=== PATIENT | female | born 1980 | race Caucasian/White ===

== ENCOUNTER 2017-03-31 17:10 | Emergency (ER) | payer SELFPAY ==
[~2017-03-31] VITALS: Ht 152.4 cm; Wt 99.8 kg
[~2017-03-31 17:10] MED LIST: ALEVE220 MG PO; BROMFED DM 480480 ML PO; CIPROFLOXACIN500 MG PO; DIUREX WATER PI1 TAB PO; LEVOTHYROXINE0.05 MG NG; PRAVASTATIN 40M40 MG PO; TYLENOL SINUS C PO
--- OUTSIDE RECORDS SUMMARY | 2017-03-31 17:18 | External Medical Summary Rpt | CCD ---
Author Author , SANDRA Organization SANDRA Address Unknown Phone [email or web address] Care Team Providers Care Oracle Fusion Consultant Name Role Phone ARNULFO PERKINS MD, Unavailable Unavailable ARNULFO PERKINS MD Purpose Continuity of Care Document - 03-10-2013 through 2016 Problems Code Diagnosis DOS Provider Status 244.9 244.9 03-10-2013 [place] HYPOTHYROID [facility] IS NOS [facility] 250.00 250.00 DIAB 03-10-2013 [place] CHARLEEN WO [facility], TYPE Hospital II OR UNSPEC TYPE, NOT UNCNTRLD 272.4 272.4 03-10-2013 [place] HYPERLIPIDE [facility] named [facility]/NOS [facility] 305.1 305.1 03-10-2013 [place] TOBACCO USE [facility] 535.50 535.50 UNSP 03-10-2013 [place] GASTRITIS [facility] & [facility] 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 HEMORG V58.69 V58.69 OTH 03-10-2013 [place] MED,LT,CURR [facility] ENT USE Hospital Allergies, Adverse Reactions, Alerts Type Allergy to substance Adverse Reaction to Substance Substance Reaction Severity NO KNOWN ALLERGIES Unknown Unknown Medications Na ND Rx Da Fi Fi Am Da Di Ph RX Ph St me C No te ll ll ou ys ag ar # ys at rm s nt no ma ic us Or Da si cy ia de te s n re d Sa 63 10 0 No li 80 -3 ne 70 1- Lo 10 20 ng Fl 07 13 er us 5 h Ac 10 ti ML ve Sy ri ng e GI 12 10 0 No 32 -3 CO 22 1- Lo CK 22 20 ng TA 22 13 er [place] 2 Ac 60 ti ML ve UD C PA 51 10 0 No NT 07 -3 OP 90 1- Lo RA 05 20 ng ZO 12 13 er LE 0 Ac SO ti D ve DR 40 MG TA B Vital Signs 03-10-2013 22:42 Name Value Interpretat Reference Comment ion Range BP 73 mm[Hg] Diastolic BP Systolic 126 mm[Hg] Heart 60 /min Rate/Pulse O2% 100 % Respiratory 20 /min Rate 03-10-2013 21:44 Name Value Interpretat Reference Comment ion Range BP 88 mm[Hg] Diastolic BP Systolic 145 mm[Hg] Heart 82 /min Rate/Pulse O2% 98 % Respiratory 20 /min Rate Results Labs Lab Lab Date Result Refere Interp Status Commen Order Detail nces retati t Range on LIPASE (03-10-2013 21:40) LIPASE 245 U/L 73-393 complet 013 ed 21:40 COMPREHENSIVE METABOLIC PANEL (03-10-2013 21:13) Glucose 119 74-106 complet 013 mg/dL ed Bld-mCn 21:13 c BUN 13 7-18 complet Bld-mCn 013 mg/dL ed c 21:13 Creat 1.1 0.6-1.0 complet SerPl-m 013 mg/dL ed Cnc 21:13 Creat 118 50-200 complet Cl 013 ML/MIN ed predict 21:13 ed SerPl C-G-vRa te GFR/BSA 58 59- complet .pred 013 ML/MIN ed SerPl 21:13 Schwart z-vRate Sodium 141 136-145 complet SerPl-s 013 mmoL/L ed Cnc 21:13 Potassi 4.1 3.5-5.1 complet um 013 mmoL/L ed SerPl-s 21:13 Cnc Chlorid 105 98-107 complet e 013 mmoL/L ed SerPl-s 21:13 Cnc CO2 29 21.0-32 complet SerPl-s 013 mmoL/L .0 ed Cnc 21:13 Calcium 9.1 8.5-10. complet 013 mg/dL 1 ed SerPl-m 21:13 Cnc Prot 7.3 6.4-8.2 complet SerPl-m 013 gm/dL ed Cnc 21:13 Albumin 4.2 3.4-5.0 complet 013 gm/dL ed SerPl-m 21:13 Cnc Globuli 10-31-2 3.1 1.3-3.2 complet n 013 gm/dL ed Ser-mCn 21:13 c Albumin 03-10-2 1.4 UNK 1.1-1.8 complet /Glob 013 ed SerPl-m 21:13 Rto Bilirub 03-10-2 0.2 0.2-1.0 complet 013 mg/dL ed SerPl-m 21:13 Cnc AST 03-10-2 23 U/L 15-37 complet SerPl-c 013 ed Cnc 21:13 ALT 03-10-2 41 U/L 30-65 complet SerPl-c 013 ed Cnc 21:13 ALP 03-10-2 79 U/L 50-136 complet SerPl-c 013 ed Cnc 21:13 Amylase SerPl-cCnc (03-10-2013 21:13) Amylase 03-10-2 47 U/L 25-115 complet 013 ed SerPl-c 21:13 Cnc CBC with AUTO DIFF (03-10-2013 21:13) WBC # 03-10-2 9.7 4.8-10. complet Bld 013 K/MM3 8 ed Auto 21:13 RBC # 03-10-2 3.84 4.2-5.4 complet Bld 013 M/mm3 ed Auto 21:13 Hgb 03-10-2 11.8 12.2-16 complet Bld-mCn 013 g/dL .2 ed c 21:13 Hct Fr 03-10- 35.6 % 37.0-47 complet Bld 013 .0 ed 21:13 MCV RBC 03-10-2 92.8 fl 82.2-97 complet 013 .8 ed 21:13 MCH RBC 03-10-2 30.8 pg 27-31.2 complet Qn 013 ed Auto 21:13 MEAN 03-10-2 33.2 31.8-35 complet CORPUSC 013 g/dl .4 ed ULAR 21:13 HGB CONC RDW RBC 03-10-2 15.9 % 11.5-17 complet Auto 013 .5 ed 21:13 Platele 03-10-2 345 142-424 complet t Bld 013 K/mm3 ed Ql 21:13 Manual MEAN 03-10-2 8.0 fl 7.4-10. complet PLATELE 013 4 ed T 21:13 VOLUME Granulo 10-31-2 57.5 % 37.0-80 complet cytes 013 .0 ed Fr Bld 21:13 Auto LYMPH % 10-31-2 30.7 % 10-50.0 complet 013 ed 21:13 Monocyt 10-31-2 5.6 % 1.7-9.3 complet es Fr 013 ed Bld 21:13 Auto Eosinop 10-31-2 5.2 % 0.1-12. complet hil Fr 013 0 ed Bld 21:13 Auto Basophi 10-31-2 1.0 % 0.1-2.0 complet ls Fr 013 ed Bld 21:13 Auto Granulo 10-31-2 5.6 1.8-7.8 complet cytes # 013 K/mm3 ed Bld 21:13 Auto Lymphoc 10-31-2 3.0 0.7-4.5 complet ytes Fr 013 K/mm3 ed Bld 21:13 Auto Monocyt 10-31-2 0.5 0.1-1.0 complet es # 013 K/mm3 ed Bld 21:13 Auto Eosinop 10-31-2 0.5 0.0-0.4 complet hil # 013 K/mm3 ed Bld 21:13 Auto Basophi 10-31-2 0.1 0-0.2 complet ls # 013 K/MM3 ed Bld 21:13 Auto B-HCG Ur Ql (03-10-2013 20:55) B-HCG 10-31-2 NEGATIV NEG complet Ur Ql 013 E ed 20:55 URINALYSIS/COMPLETE (03-10-2013 20:55) URINE 10-31-2 YELLOW YELLOW complet COLOR 013 ed 20:55 URINE 10-31-2 CLEAR CLEAR complet APPEARA 013 ed NCE 20:55 URINE 10-31-2 NEGATIV NEG complet GLUCOSE 013 E ed - 20:55 DIPSTIC K URINE 10-31-2 NEGATIV NEG complet BILIRUB 013 E ed IN - 20:55 DIPSTIC K URINE 10-31-2 NEGATIV NEG complet KETONE 013 E mg/dL ed 20:55 URINE 10-31-2 1.010 1.005-1 complet SPECIFI 013 UNK .030 ed C 20:55 GRAVITY URINE 10-31-2 3+ NEG complet BLOOD 013 ed 20:55 URINE 10-31-2 7.0 UNK 5.0-8.5 complet PH 013 ed 20:55 URINE 03-10-2 TRACE NEG complet PROTEIN 013 mg/dL ed - 20:55 DIPSTIC K URINE 03-10-2 0.2 NEG complet UROBILI 013 E.U./dL ed NOGEN - 20:55 DIPSTIC K URINE 03-10-2 NEGATIV NEG complet NITRATE 013 E ed - 20:55 DIPSTIC K URINE 03-10-2 TRACE NEG complet LEUK 013 ed ESTERAS 20:55 E URINE 03-10-2 20-50 0 complet RBC 013 rbc/hpf ed 20:55 URINE 03-10-2 OCC O complet WBC 013 wbc/hpf ed 20:55 URINE 03-10-2 10-20 0-5 complet SQUAMOU 013 #/hpf ed S CELLS 20:55 URINE 03-10-2 1+ O complet BACTERI 013 ed A 20:55 Encounters Encounter Start End Date Code Location Performer Type Date Emergency ALONDRA PERKINS (ER) 3 21:29 3 22:51 [facility] ARNULFO
--- OUTSIDE RECORDS SUMMARY | 2017-03-31 17:18 | External Medical Summary Rpt | CCD ---
Author Author , SANDRA Organization SANDRA Address Unknown Phone [email or web address] Care Team Providers Care Ux Engineer Name Role Phone ARNULFO PERKINS MD, Unavailable Unavailable ARNULFO PERKINS MD Purpose Continuity of Care Document - 03-10-2013 through 2016 Problems Code Diagnosis DOS Provider Status 244.9 244.9 03-10-2013 [place] HYPOTHYROID [facility] IS NOS [facility] 250.00 250.00 DIAB 03-10-2013 [place] CHARLEEN WO [facility], TYPE Hospital II OR UNSPEC TYPE, NOT UNCNTRLD 272.4 272.4 03-10-2013 [place] HYPERLIPIDE [facility]/NOS [facility] 305.1 305.1 03-10-2013 [place] TOBACCO USE [facility] 535.50 535.50 UNSP 03-10-2013 [place] GASTRITIS [facility] & [facility] 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
--- OUTSIDE RECORDS SUMMARY | 2017-03-31 17:19 | External Medical Summary Rpt | CCD ---
Demographics Preferred Language Stateless Marital Status Unknown Temple Affiliation Unknown Race Unknown Ethnic Group Unknown Author Author , SANDRA FLORES Address Unknown Phone Immunization No patient found.
--- OUTSIDE RECORDS SUMMARY | 2017-03-31 17:19 | External Medical Summary Rpt | CCD ---
Demographics Preferred Language Nauruan Marital Status Unknown Jew Affiliation Unknown Race Unknown Ethnic Group Unknown Author Author , SANDRA FLORES Address Unknown Phone Immunization No patient found.
--- OUTSIDE RECORDS SUMMARY | 2017-03-31 17:19 | External Medical Summary Rpt ---
Author Author SANDRA Price, SANDRA [employer] Organization [employer] Address Unknown Phone Unavailable
--- OUTSIDE RECORDS SUMMARY | 2017-03-31 17:19 | External Medical Summary Rpt | CCD ---
Author Author [employer] Organization [employer] Address Unknown Phone Unavailable Purpose Continuity of Care Document - through 2016
--- NOTE | 2017-03-31 17:41 | Urgent Treatment Center Report ---
History of Present Issue Date/Time Seen by Provider 03/31/179 Visit Reason Pt arrived:Walked Presenting Problem:PT C/O OF BILATERAL EYE SWELLING, IRRITATION, AND DRAINAGE, ALONG WITH RIGHT EAR PAIN. Location if Accident: Onset of symptoms date/time:/ or onset unknown for:MEDICAL HX UNKNOWN Have you (or family members/close friends) recently traveled outside the [place]? N If Yes, where/when: Have you had exposure to infectious disease within the past month? TB? Other? Specify: Patient state that she noticed yesterday that she was having swelling in her face and around her eyes State that she was not sure if she was having an allergic reaction to something or if there was something else causing it State that today she noticed that her eyes felt irritated and there was drainage and she was having pain in right ear so she had family bring her in to get checked out ALLERGIES Coded Allergies: No Known Allergies (03/31/17) History Medical History General CAD? No Angina: No [place]: No Hypertension? No Hyperlipidemia? Yes CHF? No DVT? No PE? No COPD? No Asthma? No Anemia? No GERD? No Gastric ulcers? No GI Bleed? No Hernia? No Thyroid Problems? Yes Hypothyroidism? Yes CVA? No Seizures? No Diabetes? Yes Insulin Dependent: No Insulin Pump: No Home FSBS? Yes Renal Insuffiency? No UTI? No Stones? No BPH? No GB Disease: No Nephritic Syndrome? No Asplenia? No Hepatitis? No Sickle Cell Disease? No Arthritis? No Migraines? No Cataracts? No Glaucoma? No MRSA? No HIV? No TB? No Anxiety? No Depression? No Cancer? No More? 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 Physical Exam Vital Signs Vital Signs Date Time Temp Pulse Resp B/P Pulse O2 O2 Flow FiO2 Ox Delivery Rate 03/31 1733 98.5 70 18 115/82 99 General Appearance normal appearance, no apparent distress Eye Exam - bilateral eye PERRL, bilateral eye EOMI Ear, Nose, Throat right ear red, TM bulging, scratch noted in canal Respiratory Status Yes: trachea midline, chest symmetrical, non tender chest. No: respiratory distress. Lung Sounds bilateral: normal breath sounds, lungs clear. Cardiovascular normal exam, regular rate/rhythm Neurologic alert, normal exam, oriented x 3 Comments Drainage noted left eye with red conjunctiva like that seen with conjunctivitis Medical Decision Making LABS/Meds/Orders Pt receiving controlled substance in ED? No Results/Orders Current Medication Orders Sig/Gwendolyn Start time Last Medication Dose Route Stop Time Status Admin Famotidine 0 .STK-MED ONE 03/31 1750 DC .ROUTE Loratadine 0 .STK-MED ONE 03/31 1750 DC PO Methylprednisolone 0 .STK-MED ONE 03/31 1750 DC Sodium Succinate .ROUTE Diphenhydramine HCl 0 .STK-MED ONE 03/31 1749 DC .ROUTE Diphenhydramine HCl 50 MG ONCE ONE 03/31 1745 DC 03/31 IM 03/31 1746 175 Famotidine 20 MG ONCE ONE 03/31 1745 DC 03/31 PO 03/31 1746 175 Loratadine 10 MG ONCE ONE 03/31 1745 DC 03/31 PO 03/31 1746 175 Methylprednisolone 125 MG ONCE ONE 03/31 1745 DC 03/31 Sodium Succinate IM 03/31 1746 175 Progress [facility] Progress Notes Comment After medication given swelling around eyes improved and patient state that she is no longer itching. Departure Departure Time of Disposition 1810 Disposition DC Home or Self Care(routine) Clinical Impression Primary Impression: Allergic reaction Qualifiers: Encounter type: initial encounter Qualified Code: T78.40XA - Allergy, unspecified, initial encounter Secondary Impressions: Conjunctivitis Qualifiers: Conjunctivitis type: unspecified Laterality: left Qualified Code: H10.9 - Unspecified conjunctivitis Otitis media Qualifiers: Otitis media type: unspecified Laterality: right Qualified Code: H66.91 - Otitis media, unspecified, right ear Condition STABLE Patient Instructions Conjunctivitis, DI for Conjunctivitis, DI for Eye Allergic Reaction, DI for Otitis Media (Middle Ear Infection)-Child Additional Instructions FOllow up with family doctor Return if needed Take medication as prescribed If swelling returns go straight to ER Discharge Counseling Counseled pt/family regarding diagnosis, medications/RX, home care, follow up needs Prescriptions Current Visit Scripts Amoxicillin Trihydrate (Amoxicillin 500MG) 500 MG PO TID #30 CAP GENTAMICIN SULFATE (GENTAMICIN 0.3% OPHTH SOLN) 1 DROP OP Q4HP #5 ML TO AFFECTED EYE(S) at 4535
[2017-03-31] MEDS ORDERED: AMOXICILLIN 50500 MG PO (18:13)
[2017-03-31] MEDS ORDERED: GENTAMICIN O5 ML/BOT OP (18:14)
[2017-03-31 18:16] VITALS: BP 115/82
== END 2017-03-31 18:19 | disposition home or self-care (01) ==
LOC: UTC 17:10
DX: T78.40XA Allergy, unspecified, initial encounter (principal); H66.91 Otitis media, unspecified, right ear; H10.12 Acute atopic conjunctivitis, left eye; F17.210 Nicotine dependence, cigarettes, uncomplicated; E03.9 Hypothyroidism, unspecified